=== PATIENT | male | born 1945 | race Caucasian/White ===

== ENCOUNTER 2020-03-12 20:56 | Observation (INO) ==
[2020-03-12 22:00] LABS: Hematocrit 42.6 % (37.5-50.1); Hemoglobin 13.9 g/dL (12.9-16.9); Mean Corpuscular HGB Conc 32.6 g/dL (31.6-35.5); Mean Corpuscular Hemoglobin 30.3 pg (28.0-33.3); Mean Corpuscular Volume 92.8 fL (83.0-100.0); Mean Platelet Volume 9.3 fL (9.4-12.4); Platelet Count 247 K/mcL (140-400); Red Blood Count 4.59 M/mcL (4.19-5.50); Red Cell Distribution Width 14.2 % (11.5-14.5); White Blood Count 9.6 K/mcL (4.3-11.1)
[2020-03-12 22:03] LABS: Bilirubin,Urine Negative (Negative); Blood,Urine Negative (Negative); Clarity,Urine Clear (Clear); Color,Urine Yellow (Yellow); Glucose,Urine (UA) Normal (Normal); Hyaline Casts,Urine Few per lpf (None Seen); Ketones,Urine Negative (Negative); Leukocyte Esterase,Urine Negative (Negative); Mucus,Urine Few per lpf (None-Few); Nitrite,Urine Negative (Negative); PH,Urine 5.5 pH Units (5.0-8.0); Protein,Urine 70 mg/dL (Neg-Trace); RBC,Urine 0-3 per hpf (0-3); Specific Gravity,Urine 1.028 (1.010-1.025); Squamous Epithelial Cell,Urine Few per hpf (None-Few); WBC,Urine 0-3 per hpf (0-3)
[2020-03-12 22:19] LABS: Calcium 10.1 mg/dL (8.6-10.3); Potassium 4.4 mEq/L (3.5-5.1)
[2020-03-12 22:25] LABS: Troponin I 0.05 ng/mL (< 0.04)
[2020-03-12] MEDS ORDERED: Naloxone 0.4 MG/ML INJ IVP PRN (23:01)
[2020-03-12] MEDS: Ondansetron 4 MG/2 ML VIAL IVP PRN (23:43)
[2020-03-13 03:46] LABS: Red Cell Distribution Width 14.2 % (11.5-14.5)
[2020-03-13 03:48] LABS: Basophils # 0.1 K/mcL (0.0-0.2); Basophils % 0.8 %; Eosinophils # 0.4 K/mcL (0.0-0.6); Eosinophils % 4.3 %; Hematocrit 40.4 % (37.5-50.1); Hemoglobin 13.3 g/dL (12.9-16.9); Immature Platelets 3.1 % (1.1-6.1); Lymphocytes # 1.6 K/mcL (0.6-4.6); Lymphocytes % 17.6 %; Mean Corpuscular HGB Conc 32.9 g/dL (31.6-35.5); Mean Corpuscular Hemoglobin 30.5 pg (28.0-33.3); Mean Corpuscular Volume 92.7 fL (83.0-100.0); Mean Platelet Volume 9.3 fL (9.4-12.4); Monocytes # 0.7 K/mcL (0.0-1.3); Monocytes % 7.9 %; Neutrophils # 6.2 K/mcL (1.6-8.9); Platelet Count 220 K/mcL (140-400); Red Blood Count 4.36 M/mcL (4.19-5.50); Segmented Neutrophils % 68.4 %
[2020-03-13] MEDS ORDERED: *HR* Heparin 5,000 UNIT/ML VIAL IVP PRN ×2 (03:48)
[2020-03-13] MEDS ORDERED: *HR* Heparin 5,000 UNIT/ML VIAL IVP ONE (03:48)
[2020-03-13 03:54] LABS: Potassium 4.4 mEq/L (3.5-5.1)
[2020-03-13 04:03] LABS: Troponin I 0.05 ng/mL (< 0.04)
[2020-03-13] MEDS: Heparin 25,000 UNIT/250 ML D5W 25,000 UNIT/250 ML IV.SOLN IVC SCH (04:31)
[2020-03-13 04:51] LABS: Heparin anti-factor XA UFH 0.04 IU/mL (0.30-0.70)
[2020-03-13 04:52] LABS: INR 1.1; Prothrombin Time 12.1 Seconds (9.4-12.1)
[2020-03-13 09:32] LABS: Chol/HDL Ratio 5.7 (0-4.9); Troponin I 0.05 ng/mL (< 0.04)
[2020-03-13] MEDS: Aspirin 81 MG TAB.CHEW PO SCH (09:58)
[2020-03-13] MEDS ORDERED: GI Cocktail 40 ML EACH PO ONE (10:27)
[2020-03-13] MEDS: Ondansetron 4 MG/2 ML VIAL IVP PRN ×2 (10:29→20:06)
[2020-03-13] MEDS ORDERED: Nitroglycerin 0.4 MG TAB.SUBL SL PRN (10:33)
[2020-03-13] MEDS: *HR* HYDROcodone/Acet 5/325 mg TABLET PO PRN (12:59)
[2020-03-13] MEDS: Isosorbide MONOnitrate (24 HR) 30 MG TAB.ER.24H PO SCH (14:45)
[2020-03-13] MEDS ORDERED: Acetaminophen IV 1,000 MG/100 ML BAG IVPB ONE (14:52)
[2020-03-13] MEDS: Pantoprazole 40 MG VIAL IVP SCH (17:05)
[2020-03-13] MEDS: carvediloL 6.25 MG TABLET PO SCH (17:05)
[2020-03-13] MEDS ORDERED: Perflutren Lipid Microsphere 1.3 ML in 0.9 % Sodium Chloride 8.7 ML IVP ONE (19:14)
[2020-03-13] MEDS: Ranolazine 500 MG TAB.ER.12H PO SCH (20:09)
[2020-03-13] MEDS: Gabapentin 300 MG CAPSULE PO SCH (20:09)
[2020-03-13] MEDS ORDERED: Acetaminophen IV 500 MG/50 ML BAG IVPB ONE (20:27)
[2020-03-13] MEDS ORDERED: Gabapentin 300 MG CAPSULE PO SCH (21:00)
[2020-03-13] MEDS ORDERED: FLUoxetine 20 MG CAPSULE PO SCH (21:00)
[2020-03-13] MEDS ORDERED: OXcarbazepine 150 MG TABLET PO SCH (21:00)
[2020-03-13] MEDS ORDERED: Melatonin 3 MG TABLET PO ONE (23:14)
[2020-03-14] MEDS: *HR* HYDROcodone/Acet 5/325 mg TABLET PO PRN ×2 (00:55→13:08)
[2020-03-14] MEDS: Ondansetron 4 MG/2 ML VIAL IVP PRN ×2 (01:00→14:58)
[2020-03-14] MEDS: Heparin 25,000 UNIT/250 ML D5W 25,000 UNIT/250 ML IV.SOLN IVC SCH (01:02)
[2020-03-14 02:40] LABS: Basophils # 0.1 K/mcL (0.0-0.2); Basophils % 0.8 %; Eosinophils # 0.2 K/mcL (0.0-0.6); Hematocrit 37.9 % (37.5-50.1); Hemoglobin 12.5 g/dL (12.9-16.9); Immature Granulocytes % 0.8 % (0-4); Lymphocytes # 1.2 K/mcL (0.6-4.6); Lymphocytes % 12.9 %; Mean Corpuscular Hemoglobin 30.7 pg (28.0-33.3); Mean Corpuscular Volume 93.1 fL (83.0-100.0); Mean Platelet Volume 9.5 fL (9.4-12.4); Monocytes # 0.5 K/mcL (0.0-1.3); Monocytes % 5.2 %; Neutrophils # 7.3 K/mcL (1.6-8.9); Platelet Count 199 K/mcL (140-400); Red Blood Count 4.07 M/mcL (4.19-5.50); Red Cell Distribution Width 14.1 % (11.5-14.5); Segmented Neutrophils % 78.3 %; White Blood Count 9.3 K/mcL (4.3-11.1)
[2020-03-14 02:44] LABS: Calcium 9.7 mg/dL (8.6-10.3); Magnesium 2.1 mg/dL (1.6-2.6); Phosphorous 3.2 mg/dL (2.7-4.5); Potassium 4.4 mEq/L (3.5-5.1)
[2020-03-14] MEDS ORDERED: Morphine Sulfate 2 MG/ML SYRINGE IVP ONE (03:41)
[2020-03-14] MEDS ORDERED: *HR* LORazepam 0.5 MG TABLET PO ONE (03:42)
[2020-03-14] MEDS: Pantoprazole 40 MG VIAL IVP SCH (05:18)
[2020-03-14] MEDS ORDERED: Regadenoson 0.4 MG/5 ML SYRINGE IVP ONE (06:17)
[2020-03-14] MEDS ORDERED: OXcarbazepine 150 MG TABLET PO SCH (09:00)
[2020-03-14] MEDS ORDERED: lisinopriL 20 MG TABLET PO SCH (09:00)
[2020-03-14] MEDS ORDERED: polyethylene glycoL 3350 17 GM POWD.PACK PO SCH (09:00)
[2020-03-14] MEDS ORDERED: Cholecalciferol (D-3) 1,000 UNIT (25MCG) TABLET PO SCH (09:00)
[2020-03-14] MEDS: Aspirin 81 MG TAB.CHEW PO SCH (09:47)
[2020-03-14] MEDS: Gabapentin 300 MG CAPSULE PO SCH (09:47)
[2020-03-14] MEDS: carvediloL 6.25 MG TABLET PO SCH (09:47)
[2020-03-14] MEDS: Ranolazine 500 MG TAB.ER.12H PO SCH (09:47)
[2020-03-14] MEDS: Isosorbide MONOnitrate (24 HR) 30 MG TAB.ER.24H PO SCH (09:47)
[2020-03-14 14:41] VITALS: BP 117/73
== END 2020-03-14 16:58 | disposition other institution (70) ==
LOC: 3BNU 20:56 → EMEROOARM 20:56 → SUATTDRO 22:51 → 3BNU 23:25
PROVIDERS: ADMIT Internal Medicine; ATTEND Internal Medicine